=== PATIENT | female | born 1975 | race Caucasian/White ===

== ENCOUNTER 2019-07-30 15:39 | Emergency (ER) | payer MEDICAID ==
[~2019-07-30] VITALS: Ht 152.4 cm; Wt 82.0 kg
[2019-07-30] MEDS ORDERED: LORazepam 2 mg/ml vial IV ONE (16:05)
[2019-07-30] MEDS ORDERED: thiamine 100mg/ml 2ml inj. IV ONE (16:05)
[2019-07-30] MEDS ORDERED: normal saline 1000ML IV soln IVB ONE ×2 (16:05→17:20)
[2019-07-30] MEDS ORDERED: folic acid 1mg/0.2ml inj IV ONE (16:05)
[2019-07-30 16:13] LABS: BASOPHILS % (AUTO) 1.1 % (0-1); EOSINOPHILS % (AUTO) 0.1 % (0-6); HEMATOCRIT 31.3 % (35.0-45.0); HEMOGLOBIN 9.4 g/dl (12.0-16.0); LYMPHOCYTES # (AUTO) 0.8 X10'3 (1.1-4.8); LYMPHOCYTES % (AUTO) 16.7 % (21-51); MEAN CORPUSCULAR HGB CONC 30.2 g/dL (33.0-36.5); MEAN CORPUSCULAR VOLUME 76.2 FL (78-98); MEAN PLATELET VOLUME 8.3 FL (7.4-10.4); MONOCYTES # (AUTO) 0.4 X10'3 (0-0.9); MONOCYTES % (AUTO) 9.1 % (2-12); NEUTROPHILS # (AUTO) 3.3 X10'3 (1.8-7.7); PLATELET COUNT 296 X10'3 (140-440); RED BLOOD COUNT 4.11 X10'6 (4.20-5.60); RED CELL DISTRIBUTION WIDTH 33.3 % (11.5-14.5); WHITE BLOOD COUNT 4.5 X10'3 (4.5-11.0)
[2019-07-30 16:24] LABS: ALANINE AMINOTRANSFERASE 188 U/L (12-78); ALBUMIN 3.8 G/DL (3.4-5.0); ALKALINE PHOSPHATASE 274 IU/L (46-116); ANION GAP 12 (8-16); ASPARTATE AMINO TRANSFERASE 481 U/L (10-37); BILIRUBIN,TOTAL 0.7 MG/DL (0.1-1.0); BLOOD UREA NITROGEN 8 MG/DL (7-18); BUN/CREATININE RATIO 12.9 (6.6-38.0); CHLORIDE 102 MMOL/L (99-107); CREATININE 0.62 MG/DL (0.40-0.90); GLUCOSE 87 MG/DL (70-104); POTASSIUM 3.8 MMOL/L (3.5-5.1); SODIUM 140 MMOL/L (135-145); TOTAL CARBON DIOXIDE 25.6 MMOL/L (24-32); TOTAL PROTEIN 7.6 G/DL (6.4-8.2); eGFR > 90 ML/MIN
[2019-07-30 16:27] LABS: PLATELET ESTIMATE NORMAL
[2019-07-30 16:28] LABS: ANISOCYTOSIS 3+; MICROCYTOSIS 1+; TARGET CELLS FEW
[2019-07-30 16:29] LABS: HYPOCHROMASIA 2+
[2019-07-30 16:30] LABS: ETHANOL < 0.010 GM/DL (0.0-0.010); LIPASE 409 U/L (73-393); MAGNESIUM 1.8 MG/DL (1.5-2.4); PHOSPHORUS 3.5 MG/DL (2.3-4.5)
[2019-07-30] MEDS ORDERED: cloNIDine 0.1 mg tablet PO STA (17:21)
[2019-07-30] MEDS ORDERED: chlordiazePOXIDE 25mg capsule PO ONE (17:25)
[2019-07-30 17:28] LABS: URINE HCG NEGATIVE (NEG)
[2019-07-30 17:32] LABS: CLARITY,URINE SLIGHTLY CLOUDY (Clear); COLOR,URINE YELLOW (Yellow); GLUCOSE, URINE NEGATIVE (Neg); KETONES,URINE 15 mg/dl (Neg); LEUKOCYTE ESTERASE ,URINE NEGATIVE (Neg); NITRITES, URINE POSITIVE (Neg); OCCULT BLOOD,URINE NEGATIVE (Neg); PROTEIN,URINE NEGATIVE (Neg); UROBILINOGEN,URINE 0.2 E.U/dL (0.2-1.0)
[2019-07-30 17:37] LABS: UA COLLECTION TYPE CLN CATCH MIDSTREAM; URINE AMPHETAMINE SCREEN POSITIVE (Neg); URINE BARBITUATE SCREEN NEGATIVE (Neg); URINE BENZODIAZEPINES SCREEN NEGATIVE (Neg); URINE CANNABINOID SCREEN POSITIVE (Neg); URINE COCAINE SCREEN NEGATIVE (Neg); URINE METHADONE SCREEN NEGATIVE (Neg); URINE OPIATE SCREEN NEGATIVE (Neg); URINE PHENCYCLIDINE SCREEN NEGATIVE (Neg)
[2019-07-30 17:38] LABS: BACTERIA,URINE 4+ /HPF (Neg); RBC,URINE 0-2 /HPF (0-2); SQUAMOUS EPITHELIAL CELL,UR FEW /LPF (FEW); WBC,URINE 0-4 /HPF (0-4)
[2019-07-30 17:39] LABS: MUCUS STRANDS FEW /LPF (Neg)
[2019-07-30 19:27] VITALS: BP 179/109
[2019-07-30] MEDS ORDERED: CLON-529 PO (19:38)
[2019-07-30] MEDS ORDERED: CHLO25CA10 PO (19:38)
--- NOTE | 2019-08-04 16:08 | NUR ---
ATTEMPTED TO CALL PT. UNABLE TO LEAVE A MESSAGE ON THE PHONE NUMBER PROVIDED.
--- NOTE | 2019-08-10 16:29 | NUR ---
ATTEMPTED TO CALL PT AT [phone]. RINGS ONCE WITH A MESSAGE STATING THIS IS NOT A RECONIZED MAILBOX.
--- NOTE | 2019-08-10 16:36 | NUR ---
ATTEMPTED TO CALL PT NEXT OF KIN HER MOTHER HELEN AT [phone], PHONE RANG NO ANSWER AND NO MACHINE.
--- NOTE | 2019-08-11 10:19 | NUR ---
Called patients listed number at which went straight to a voice mail and stated, "this is not a recognized number." Letter sent to listed address. Patient will need to be placed on Cipro 500 mg PO BID x 5 days for diagnosis of UTI per Dr. Kojo branch.
== END 2019-07-30 19:54 | disposition home or self-care (01) ==
LOC: ER 15:39
DX: F10.239 Alcohol dependence with withdrawal, unspecified (principal); I10 Essential (primary) hypertension; R42 Dizziness and giddiness; F12.90 Cannabis use, unspecified, uncomplicated; Z79.899 Other long term (current) drug therapy
CPT/HCPCS: 36415; 80053; 80305; 80320; 81001; 81025; 83690; 83735; 84100; 84484; 85025; 87077; 87088; 87186; 93005; 96361; 96374; 96375; 99285; J2060; J3411; J3490; J7030; 99284

== ENCOUNTER 2020-10-29 11:25 | Emergency (ER) | payer MEDICAID ==
[~2020-10-29] VITALS: Ht 152.4 cm; Wt 72.0 kg
[~2020-10-29 11:25] MED LIST: CHLO25CA10 PO; CLON-529 PO
[2020-10-29] MEDS ORDERED: normal saline 1000ML IV soln IVB ONE (17:45)
[2020-10-29] MEDS ORDERED: pantoprazole 40 MG vial IV ONE (17:45)
[2020-10-29] MEDS ORDERED: LORazepam 2 mg/ml vial IV ONE ×2 (17:45→19:30)
[2020-10-29] MEDS ORDERED: famotidine/PF 10 mg/ml inj IV ONE (17:45)
[2020-10-29] MEDS ORDERED: ondansetron/PF 4mg/2ml inj IV ONE (17:45)
[2020-10-29 18:59] LABS: HEMOGLOBIN 8.7 g/dl (12.0-16.0)
[2020-10-29] MEDS ORDERED: chlordiazePOXIDE 25mg capsule PO ONE (19:00)
[2020-10-29] MEDS ORDERED: thiamine 100mg/ml 2ml inj. IV ONE (19:00)
[2020-10-29 19:01] LABS: HEMATOCRIT 26.1 % (35.0-45.0); MEAN CORPUSCULAR HEMOGLOBIN 30.5 PG (27.0-31.0); MEAN CORPUSCULAR HGB CONC 33.4 g/dL (33.0-36.5); MEAN CORPUSCULAR VOLUME 91.4 FL (78-98); MEAN PLATELET VOLUME 7.3 FL (7.4-10.4); PLATELET COUNT 158 X10'3 (140-440); RED BLOOD COUNT 2.86 X10'6 (4.20-5.60); RED CELL DISTRIBUTION WIDTH 24.5 % (11.5-14.5); WHITE BLOOD COUNT 2.8 X10'3 (4.5-11.0)
[2020-10-29 19:08] LABS: ALANINE AMINOTRANSFERASE 85 U/L (12-78); ALBUMIN 2.1 G/DL (3.4-5.0); ALBUMIN/GLOBULIN RATIO 0.6 (1.1-1.5); ALKALINE PHOSPHATASE 494 IU/L (46-116); ANION GAP 24 (8-16); ASPARTATE AMINO TRANSFERASE 265 U/L (10-37); BLOOD UREA NITROGEN 11 MG/DL (7-18); BUN/CREATININE RATIO 16.9 (6.6-38.0); CALCIUM 7.6 MG/DL (8.5-10.1); CHLORIDE 94 MMOL/L (99-107); CREATININE 0.65 MG/DL (0.40-0.90); ETHANOL 0.083 GM/DL (0.0-0.010); GLUCOSE 116 MG/DL (70-104); MAGNESIUM 1.2 MG/DL (1.5-2.4); POTASSIUM 3.2 MMOL/L (3.5-5.1); SODIUM 136 MMOL/L (135-145); TOTAL CARBON DIOXIDE 18.1 MMOL/L (24-32); TOTAL PROTEIN 5.7 G/DL (6.4-8.2); eGFR > 90 ML/MIN
[2020-10-29] MEDS ORDERED: potassium Cl 20 mEq SR tablet PO STA ×2 (19:33→21:23)
[2020-10-29] MEDS: potassium Cl 20mEq in D5-NS 1,000 ML IV SCH ×2 (19:35→20:35)
--- NOTE | 2020-10-29 20:06 | NUR ---
PT MOVED FROM BED 1 TO IVEY 7
[2020-10-29] MEDS ORDERED: CHLO25CA10 PO (20:45)
[2020-10-29] MEDS ORDERED: ONDA4TAB6 PO (20:47)
[2020-10-29] MEDS ORDERED: proCHLORperazine 10 MG/2 ml inj IV ONE (20:50)
[2020-10-29 21:07] LABS: BANDS% (MANUAL) 1 % (0-10); TOTAL CELLS COUNTED 100
[2020-10-29 21:08] LABS: ANISOCYTOSIS 3+; PLATELET ESTIMATE NORMAL; POIKILOCYTOSIS 1+
[2020-10-29 21:09] LABS: STOMATOCYTES 1+
[2020-10-29 21:37] LABS: URINE AMPHETAMINE SCREEN NEGATIVE (Neg); URINE BARBITUATE SCREEN NEGATIVE (Neg); URINE BENZODIAZEPINES SCREEN NEGATIVE (Neg); URINE CANNABINOID SCREEN NEGATIVE (Neg); URINE COCAINE SCREEN NEGATIVE (Neg); URINE METHADONE SCREEN NEGATIVE (Neg); URINE OPIATE SCREEN NEGATIVE (Neg); URINE PHENCYCLIDINE SCREEN NEGATIVE (Neg)
[2020-10-29 21:41] LABS: CLARITY,URINE SLIGHTLY CLOUDY (Clear); COLOR,URINE YELLOW (Yellow); GLUCOSE, URINE 100 mg/dl (Neg); KETONES,URINE 40 mg/dl (Neg); LEUKOCYTE ESTERASE ,URINE MODERATE (Neg); NITRITES, URINE NEGATIVE (Neg); OCCULT BLOOD,URINE MODERATE (Neg); PH,URINE 6.5 (4.8-8.0); PROTEIN,URINE 100 mg/dl (Neg); UROBILINOGEN,URINE >=8.0 E.U/dL (0.2-1.0)
[2020-10-29 21:59] LABS: UA COLLECTION TYPE CLN CATCH MIDSTREAM
[2020-10-29 22:04] LABS: BACTERIA,URINE FEW /HPF (Neg); WBC,URINE 0-4 /HPF (0-4)
[2020-10-29 22:05] LABS: SQUAMOUS EPITHELIAL CELL,UR FEW /LPF (FEW)
[2020-10-29 22:19] VITALS: BP 131/95
[2020-10-30 09:28] LABS: LYMPHOCYTES % (MANUAL) 23 % (21-51); MONOCYTES % (MANUAL) 9 % (2-12); NEUTROPHILS % (MANUAL) 67 % (42-75); SMUDGE CELLS FEW
[2020-10-30 09:30] LABS: HYPOCHROMASIA 1+; POLYCHROMASIA 1+; TARGET CELLS 1+
== END 2020-10-29 22:14 | disposition home or self-care (01) ==
LOC: ER 11:25
DX: S00.83XA Contusion of other part of head, initial encounter (principal); S90.01XA Contusion of right ankle, initial encounter; S90.31XA Contusion of right foot, initial encounter; I10 Essential (primary) hypertension; F10.239 Alcohol dependence with withdrawal, unspecified; Y90.0 Blood alcohol level of less than 20 mg/100 ml; Z79.899 Other long term (current) drug therapy; W18.39XA Other fall on same level, initial encounter; Y93.89 Activity, other specified; Y92.89 Other specified places as the place of occurrence of the external cause; Y99.8 Other external cause status
CPT/HCPCS: 29515; 36415; 70450; 73610; 73630; 80053; 80305; 80320; 81001; 83735; 85007; 85025; 87088; 96361; 96374; 96375; 96376; 99285; C9113; J0780; J2060; J2405; J3411; J3490; J7030; 87186

== ENCOUNTER 2021-01-28 06:27 | Day surgery (SDC) | payer MEDICAID ==
[2021-01-28] VITALS (7 sets, daily range): BP systolic 107–124; BP diastolic 73–86
[~2021-01-28] VITALS: Ht 152.4 cm; Wt 64.0 kg
[~2021-01-28 06:27] MED LIST changes: +ONDA4TAB6 PO
[2021-01-28] MEDS ORDERED: normal saline 1000ml 1,000 ML IV PRN (06:45)
[2021-01-28] MEDS ORDERED: albumin 25% 100mL bottle x 1 IV PRN (06:45)
[2021-01-28] MEDS ORDERED: RIVA15TA PO (07:22)
[2021-01-28] MEDS ORDERED: HYDR-3973 PO (07:22)
[2021-01-28] MEDS ORDERED: SPIR25TA5 PO (07:22)
[2021-01-28] MEDS ORDERED: DOCU-342 PO (07:22)
[2021-01-28] MEDS ORDERED: ASPI-1397 PO (07:22)
== END 2021-01-28 09:50 | disposition home or self-care (01) ==
LOC: SSTAY O 06:27
PROVIDERS: ATTEND Preventive Medicine Aerospace Medicine
DX: K70.31 Alcoholic cirrhosis of liver with ascites (principal); Z86.718 Personal history of other venous thrombosis and embolism; Z87.440 Personal history of urinary (tract) infections; Z98.84 Bariatric surgery status; Z98.890 Other specified postprocedural states; F12.90 Cannabis use, unspecified, uncomplicated; Z79.01 Long term (current) use of anticoagulants; Z79.82 Long term (current) use of aspirin; Z79.899 Other long term (current) drug therapy
CPT/HCPCS: 49083

== ENCOUNTER 2021-03-04 06:12 | Day surgery (SDC) | payer MEDICAID ==
[~2021-03-04] VITALS: Ht 152.4 cm; Wt 54.5 kg
[~2021-03-04 06:12] MED LIST changes: +ASPI-1397 PO; -CHLO25CA10 PO; -CLON-529 PO; +DOCU-342 PO; +HYDR-3973 PO; -ONDA4TAB6 PO; +RIVA15TA PO; +SPIR25TA5 PO
[2021-03-04] MEDS ORDERED: LACT10SO3 PO (06:34)
[2021-03-04] MEDS ORDERED: FAMO20TA8 PO (06:34)
[2021-03-04] MEDS ORDERED: ESCI20TA39 PO (06:34)
[2021-03-04] MEDS ORDERED: ONDA-103 PO (06:34)
[2021-03-04] MEDS ORDERED: FURO20TA4 PO (06:34)
[2021-03-04 06:35] VITALS: BP 137/99
[2021-03-04] MEDS ORDERED: normal saline 1000ml 1,000 ML IV PRN (06:35)
[2021-03-04] MEDS ORDERED: albumin 25% 100mL bottle x 1 IV PRN (06:35)
[2021-03-04] MEDS ORDERED: LIDOcaine 1% 30ml preserv. free vial IJ STA (07:50)
== END 2021-03-04 08:20 | disposition home or self-care (01) ==
LOC: SSTAY O 06:12
PROVIDERS: ATTEND Preventive Medicine Aerospace Medicine
DX: K70.31 Alcoholic cirrhosis of liver with ascites (principal); Z53.8 Procedure and treatment not carried out for other reasons; R14.0 Abdominal distension (gaseous); Z86.718 Personal history of other venous thrombosis and embolism; Z87.440 Personal history of urinary (tract) infections; Z98.84 Bariatric surgery status; Z98.890 Other specified postprocedural states; F10.20 Alcohol dependence, uncomplicated; F12.90 Cannabis use, unspecified, uncomplicated; Z79.899 Other long term (current) drug therapy; Z79.82 Long term (current) use of aspirin
CPT/HCPCS: 76705

== ENCOUNTER 2021-04-01 07:28 | Day surgery (SDC) | payer MEDICAID ==
[2021-04-01] VITALS (9 sets, daily range): BP systolic 119–141; BP diastolic 62–96
[~2021-04-01] VITALS: Ht 152.4 cm; Wt 52.0 kg
[~2021-04-01 07:28] MED LIST changes: -DOCU-342 PO; +ESCI20TA39 PO; +FAMO20TA8 PO; +FURO20TA4 PO; +LACT10SO3 PO; +ONDA-103 PO; -RIVA15TA PO
[2021-04-01] MEDS ORDERED: albumin 25% 100mL bottle x 1 IV PRN (07:50)
[2021-04-01] MEDS ORDERED: LIDOcaine 1% 30ml preserv. free vial SQ STA (08:20)
[2021-04-01] MEDS ORDERED: Potassium PO (08:25)
[2021-04-01] MEDS ORDERED: LACT10SO3 PO (08:26)
[2021-04-01] MEDS ORDERED: PROC-8 PO (08:26)
== END 2021-04-01 11:20 | disposition home or self-care (01) ==
LOC: SSTAY O 07:28
PROVIDERS: ATTEND Radiology Vascular & Interventional Radiology
DX: K70.31 Alcoholic cirrhosis of liver with ascites (principal); Z87.440 Personal history of urinary (tract) infections; Z86.718 Personal history of other venous thrombosis and embolism; Z98.890 Other specified postprocedural states; Z98.84 Bariatric surgery status; F10.20 Alcohol dependence, uncomplicated; F12.90 Cannabis use, unspecified, uncomplicated
CPT/HCPCS: 49083; J3490